=== PATIENT | male | born 1995 | race Caucasian/White ===

== ENCOUNTER 2017-05-26 08:28 | Day surgery (SDC) | payer MEDICAID, SELFPAY ==
[2017-05-26] VITALS (7 sets, daily range): BP systolic 121–144; BP diastolic 60–76; PULSE 60–91; RESP 16; TEMP 36.6–37.2; O2SAT 93–99; BMI 21.7
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
--- NOTE | 2017-05-26 10:03 | RAD_ITS ---
STUDY: X-RAY - RIGHT ANKLE REASON FOR EXAM: Male, 22 years old. Ankle fracture TECHNIQUE: 5 intraoperative fluoroscopic views of the ankle. COMPARISON: 05/25/2017 FINDINGS: Fluoroscopic guidance was provided for open reduction and internal fixation of a previously seen distal fibular fracture and medial malleolar fracture. The hardware is intact and alignment is satisfactory. The total fluoroscopy time was 25.5 seconds. The radiation dose was 0.97 mGy. RAD/Ankle min 3 Views IMPRESSION: Fluoroscopic guidance provided for open reduction and internal fixation of the previously seen right ankle fracture. Electronically Signed: Stefan Moore, at 15:58 EST Tel , Service support ,
--- NOTE | 2017-05-26 12:36 | PCM.DC.ORTHO ---
Discharge Diet: No Restrictions Discharge Activity: May Not Drive, May Take a Tub Bath - keep dressing clean and dry May shower in (days): 1 Ice area for (Minutes): 20 - Ice area for 20 minutes each hour while awake Weight Bearing Status: No weight bearing - right LE Keep extremity elevated above heart level: Operative Extremity Call your doctor if your incision/area has: Continuous Slow Oozing, Sudden Increased Bleeding, Increased Pain/ Swelling, Increased Redness, Foul Smelling Discharge Call your doctor if you observe: Fever of 101 or Higher, Coldness, Increased Pain, Numbness or Tingling, Change in Color Cleanse incision/area with: Keep Dressing Clean & Dry Allergies/Adverse Reactions: Allergies No Known Allergies Allergy (Verified 05/25/17 10:54) Medications to take at Discharge Ciprofloxacin [Cipro] 500 mg PO BID #14 tablet 01/18/17 Dicyclomine HCl [Bentyl] 20 mg PO TIDAC #20 capsule 01/18/17 Metronidazole [Flagyl] 500 mg PO Q6H #40 tablet 01/18/17 ProMETHAzine [Phenergan] 25 mg PO Q6H PRN PRN #10 tablet 01/18/17 Ondansetron [Zofran Odt] 4 mg PO Q8H PRN PRN #10 tablet 05/25/17 Oxycodone HCl/Acetaminophen [Percocet 5-325] 1 - 2 tablet PO Q4H PRN PRN #20 tablet 05/26/17 The following prescriptions were given: Oxycodone HCl/Acetaminophen [Percocet 5-325] 1 - 2 tablet PO Q4H PRN PRN #20 tablet PRN Reason: Pain Primary Care Physician: Jose Yang DO [STAFF PHYSICIAN] - Within 2 Weeks
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
== END 2017-05-26 15:15 | disposition home or self-care (01) ==
PROVIDERS: Family Provider Pediatrics; PCP Pediatrics; Visit Provider Orthopaedic Surgery
DX: S82.841A Displaced bimalleolar fracture of right lower leg, initial encounter for closed fracture (principal); V86.99XA Unspecified occupant of other special all-terrain or other off-road motor vehicle injured in nontraffic accident, initial encounter; Y93.9 Activity, unspecified; Y92.89 Other specified places as the place of occurrence of the external cause; Y99.9 Unspecified external cause status; F17.200 Nicotine dependence, unspecified, uncomplicated
CPT/HCPCS: 27814; 73610; 76000; J7120; J2405